=== PATIENT | female | born 1995 | race Asian ===

== ENCOUNTER 2022-01-22 22:29 | Emergency (ER) | payer SELFPAY ==
[~2022-01-22] VITALS: Ht 157.5 cm; Wt 50.0 kg
[2022-01-22 22:39] VITALS: BP 136/87
== END 2022-01-22 23:24 ==
LOC: ER 22:30
DX: Z65.0 Conviction in civil and criminal proceedings without imprisonment (principal)
CPT/HCPCS: 99283